=== PATIENT | male | born 1955 | race Caucasian/White ===

== ENCOUNTER 2021-10-24 01:29 | Emergency (ER) | payer MEDICARE, BC ==
[2021-10-24] MEDS ORDERED: Lidocaine 1% with EPINEPHrine 1:100,000 10 ML MDV INJECT ONE (02:08)
[2021-10-24] MEDS ORDERED: Lidocaine 1% with EPINEPHrine 1:100,000 20 ML MDV INJECT STA (02:56)
[2021-10-24] MEDS ORDERED: Lidocaine 2% with EPINEPHrine 1:200,000 20 ML SDV INJECT STA (02:57)
[2021-10-24] MEDS ORDERED: Acetaminophen/oxyCODONE 325-10 MG Tab PO STA (03:54)
== END 2021-10-24 04:22 | disposition home or self-care (01) ==
LOC: MW.ED 01:29
DX: S43.122A Dislocation of left acromioclavicular joint, 100%-200% displacement, initial encounter (principal); S01.81XA Laceration without foreign body of other part of head, initial encounter; S80.02XA Contusion of left knee, initial encounter; Z88.8 Allergy status to other drugs, medicaments and biological substances; Z79.899 Other long term (current) drug therapy; Z79.82 Long term (current) use of aspirin; W10.9XXA Fall (on) (from) unspecified stairs and steps, initial encounter
CPT/HCPCS: 12011; 36415; 71046; 73030; 85025; 93005; 99284; A9270; 93010